=== PATIENT | female | born 1995 | race Two or more races ===

== ENCOUNTER 2024-05-31 08:15 | Outpatient (CLI) | payer MEDICAID, SELFPAY ==
[2024-05-31 08:33] VITALS: BP 134/91; PULSE 93
[2024-05-31 08:46] VITALS: BP 134/91; PULSE 107; RESP 18; RESP 98; TEMP 36.7; BMI 41.2
[2024-05-31 09:48] VITALS: BP 127/80; PULSE 78
[2024-05-31 09:52] LABS: Basophils % (Auto) 0 % (0-2.5); Eosinophils # (Auto) 0.1 Thou/mm3 (0.0-0.5); Eosinophils % (Auto) 1 % (0-10); Hematocrit 35.3 % (36.0-46.0); Immature Granulocytes % (Auto) 0 % (0-0); Immature Granulocytes Auto 0.03 Thou/mm3 (0.00-0.00); Lymphocytes # (Auto) 1.4 Thou/mm3 (1.0-4.8); Lymphocytes % (Auto) 15 % (10-50); Mean Corpuscular Hemoglobin 29.3 pg (25.0-35.0); Mean Corpuscular Volume 86 fL (80-100); Monocytes # (Auto) 0.5 Thou/mm3 (0.0-0.8); Monocytes % (Auto) 6 % (0-12); Neutrophils # (Auto) 7.3 Thou/mm3 (1.8-7.7); Neutrophils % (Auto) 78 % (37-80); Nucleated Red Blood Cell % 0 /100 WBC (0); Platelet Count 199 Thou/mm3 (140-440); RDW Standard Deviation 44.2 fL (36.4-46.3); White Blood Count 9.4 Thou/mm3 (3.6-11.0)
[2024-05-31 10:10] LABS: Fibrinogen 596 mg/dL (175-375); INR 0.9 (0.9-1.3); Partial Thromboplastin Time 27.3 Seconds (22.0-36.0); Prothrombin Time 10.3 Seconds (9.0-12.2)
[2024-05-31 10:20] LABS: Alanine Aminotransferase 29 U/L (10-49); Albumin, Serum 3.6 gm/dL (3.5-5.0); Albumin/Globulin Ratio 1.3 (1.2-2.2); Alkaline Phosphatase 121 U/L (46-116); Anion Gap 8 (7-16); Aspartate Amino Transferase 19 U/L (0-34); BUN/Creatinine Ratio 15 Ratio (12-20); Bilirubin,Total 0.4 mg/dL (0.3-1.2); Blood Urea Nitrogen 9 mg/dL (9-23); Calcium 9.1 mg/dL (8.3-10.6); Calcium (Corrected) 9.4 mg/dL (8.5-10.1); Carbon Dioxide 24.1 mMol/L (20.0-31.0); Chloride 103 mMol/L (98-107); Creatinine (Component) 0.6 mg/dL (0.6-1.3); Estimated Creatinine Clearance 188.4 mL/min (>60); Globulin 2.7 gm/dL (2.3-3.5); Glucose 82 mg/dL (74-106); Osmolality,Calculated 267 (275-295); Potassium 4.3 mMol/L (3.4-5.1); Sodium 135 mMol/L (136-145); Total Protein 6.3 gm/dL (5.7-8.2); Uric Acid 6.3 mg/dL (3.1-7.8); eGFR > 60 See Note
[2024-05-31 10:43] LABS: Collection Type, Urine Clean Catch
[2024-05-31 10:47] LABS: Bacteria,Urine Rare; Bilirubin,Urine Negative (Negative); Blood,Urine Negative (Negative); Clarity,Urine Clear (Clear/Hazy); Color,Urine Lt-Yellow (Lt Yel-Yel); Glucose, Urine Negative (Negative); Ketones,Urine Negative (Negative); Leukocyte Esterase,Urine Positive (Negative); Nitrite,Urine Negative (Negative); Protein,Urine Negative (Neg - Trace); RBC,Urine 1 /hpf (0-3); Squamous Epithelial Cell,Urine 3 /hpf (0-5); Urobilinogen,Urine Negative mg/dL (0.0-1.0); WBC,Urine 1 /hpf (0-5)
== END 2024-05-31 11:29 | disposition home or self-care (01) ==
LOC: S4S1 08:17 → S4SX 08:18
PROVIDERS: Referring Provider Specialist; Visit Provider Specialist
DX: Z34.83 Encounter for supervision of other normal pregnancy, third trimester (principal); Z3A.40 40 weeks gestation of pregnancy
CPT/HCPCS: 36415; 59025; 80053; 81001; 84550; 85025; 85384; 85610; 85730

== ENCOUNTER 2024-06-02 03:11 | Inpatient (IN) | payer MEDICAID, SELFPAY ==
[2024-06-02] VITALS (144 sets, daily range): BP systolic 123–175; BP diastolic 66–98; PULSE 72–202; RESP 17–18; TEMP 36.7–37.2; O2SAT 73–100
[2024-06-02] MEDS: RINGERS LACTATED 1000 ML 1,000 ML 100 ML IV ×2 (03:45→09:38)
[2024-06-02 04:05] LABS: Basophils # (Auto) 0.1 Thou/mm3 (0.0-0.2); Basophils % (Auto) 1 % (0-2.5); Eosinophils # (Auto) 0.2 Thou/mm3 (0.0-0.5); Eosinophils % (Auto) 2 % (0-10); Immature Granulocytes % (Auto) 0 % (0-0); Immature Granulocytes Auto 0.04 Thou/mm3 (0.00-0.00); Lymphocytes # (Auto) 2.1 Thou/mm3 (1.0-4.8); Lymphocytes % (Auto) 18 % (10-50); Mean Corpuscular HGB Conc 34.2 g/dl (31.0-37.0); Mean Corpuscular Hemoglobin 28.7 pg (25.0-35.0); Mean Corpuscular Volume 84 fL (80-100); Monocytes # (Auto) 0.7 Thou/mm3 (0.0-0.8); Monocytes % (Auto) 6 % (0-12); Neutrophils # (Auto) 8.8 Thou/mm3 (1.8-7.7); Neutrophils % (Auto) 74 % (37-80); Nucleated Red Blood Cell % 0 /100 WBC (0); Platelet Count 225 Thou/mm3 (140-440); RDW Standard Deviation 43.5 fL (36.4-46.3); Red Blood Count 4.53 Miln/mm3 (4.00-5.20); White Blood Count 11.8 Thou/mm3 (3.6-11.0)
[2024-06-02 04:31] LABS: Syphilis Nonreactive (Nonreactive)
[2024-06-02 06:48] LABS: Collection Type, Urine Clean Catch; WBC,Urine 0 /hpf (0-5)
[2024-06-02 07:22] LABS: Alanine Aminotransferase 27 U/L (10-49); Albumin, Serum 3.7 gm/dL (3.5-5.0); Albumin/Globulin Ratio 1.4 (1.2-2.2); Alkaline Phosphatase 130 U/L (46-116); Anion Gap 12 (7-16); Aspartate Amino Transferase 19 U/L (0-34); BUN/Creatinine Ratio 17 Ratio (12-20); Bilirubin,Total 0.4 mg/dL (0.3-1.2); Blood Urea Nitrogen 10 mg/dL (9-23); Calcium 9.3 mg/dL (8.3-10.6); Calcium (Corrected) 9.5 mg/dL (8.5-10.1); Carbon Dioxide 22.5 mMol/L (20.0-31.0); Chloride 103 mMol/L (98-107); Creatinine (Component) 0.6 mg/dL (0.6-1.3); Estimated Creatinine Clearance 268.3 mL/min (>60); Globulin 2.6 gm/dL (2.3-3.5); Glucose 86 mg/dL (74-106); Osmolality,Calculated 271 (275-295); Sodium 137 mMol/L (136-145); Total Protein 6.3 gm/dL (5.7-8.2); Uric Acid 6.5 mg/dL (3.1-7.8); eGFR > 60 See Note
[2024-06-02 08:01] LABS: Fibrinogen 523 mg/dL (175-375); INR 0.9 (0.9-1.3); Partial Thromboplastin Time 28.3 Seconds (22.0-36.0); Prothrombin Time 10.2 Seconds (9.0-12.2)
[2024-06-02 08:16] LABS: Bacteria,Urine 4+; Bilirubin,Urine Negative (Negative); Blood,Urine Trace (Negative); Clarity,Urine Clear (Clear/Hazy); Color,Urine Colorless (Lt Yel-Yel); Glucose, Urine Negative (Negative); Ketones,Urine Negative (Negative); Leukocyte Esterase,Urine Negative (Negative); Nitrite,Urine Negative (Negative); Protein,Urine Negative (Neg - Trace); RBC,Urine 1 /hpf (0-3); Specific Gravity,Urine 1.006 (1.001-1.035); Squamous Epithelial Cell,Urine 1 /hpf (0-5); Urobilinogen,Urine Negative mg/dL (0.0-1.0)
--- NOTE | 2024-06-02 10:22 | PD.LDHP ---
Documentation for date of: 06/02/24 OB Labor/Induct. HPI History of Present Illness Comments: RE: PURA RODRIGUEZ : 1995 DATE OF ADMISSION: 06/02/2024 HISTORY OF PRESENT ILLNESS: This is a 29-year-old 2, para 1 with a due date of 05/28/2024 with intrauterine at 40 weeks and 5 days who presents to labor and delivery. She reports occasional contractions. Denies leaking. She denies any bleeding. She reports normal movement. Her care was complicated by mild COVID-19 infection. She present for induction of labor. PAST MEDICAL HISTORY: Preeclampsia in a previous and appendicitis. PAST SURGICAL HISTORY: Appendectomy. ALLERGIES: NO KNOWN DRUG ALLERGIES. MEDICATIONS: 1. multivitamin one p.o. daily. 2. Aspirin 81 mg one p.o. daily. SOCIAL HISTORY: She denies any alcohol, drug use, or smoking. FAMILY HISTORY: Denies. OBSTETRIC HISTORY: In 2018, 40-week normal vaginal delivery 8 pounds 13 ounce male, no complications. REVIEW OF SYSTEMS: She denies any headache, change in vision, or right upper quadrant pain. She denies any chest pain, palpitations, shortness of breath, or lower extremity pain. PHYSICAL EXAMINATION: VITAL SIGNS: Blood pressure is 128/70, heart rate 88, respirations 18, temperature 98.2. HEENT: Oropharynx and sclerae are clear. LUNGS: Clear to auscultation bilaterally. HEART: Regular rate and rhythm. ABDOMEN: Gravid, term size consistent with estimated weight 8.25 pounds. PELVIC: See RN notes. EXTREMITIES: Nontender. SKIN: No gross rashes or lesion. NEUROLOGIC: No focal deficits. ASSESSMENT AND PLAN: Intrauterine at 40 weeks and 5 days, induction of labor Informed consent was obtained. The patient was made aware of the risks, complications, alternatives, and benefits of the proposed procedure and she agrees. Labs Labs: Negative: Hepatitis B, HIV, Chlamydia, Gonorrhea and Group Beta Strep Meds Home Medications and Allergies Home Medications ?Medication ?Instructions ?Recorded ?Confirmed ?Type aspirin 81 mg tablet,delayed mg 06/02/24 History release vit no.95-ferrous tab PO 06/02/24 History fumarate 28 mg-folic acid 800 mcg tablet () Allergies Allergy/AdvReac Type Severity Reaction Status Date / Time No Known Allergies Allergy Verified 06/02/24 07:45 OB Exam Physical Exam Vital signs: Temp Pulse Resp BP Pulse Ox 98.6 F 91 18 139/95 H 97 06/02/24 07:46 06/02/24 07:30 06/02/24 03:30 06/02/24 07:30 06/02/24 10:02 OB Results Labs 06/02/24 03:35 06/02/24 04:05 Labs: Short CBC 06/02/24 Range/Units 03:35 WBC 11.8 H (3.6-11.0) Thou/mm3 Hgb 13.0 (12.0-16.0) g/dL Hct 38.0 (36.0-46.0) % Plt Count 225 (140-440) Thou/mm3 BMP 06/02/24 04:05 Sodium 137 Potassium 4.0 Chloride 103 Carbon Dioxide 22.5 BUN 10 Creatinine 0.6 Glucose 86 Calcium 9.3 Liver Function 06/02/24 Range/Units 04:05 Total Bilirubin 0.4 (0.3-1.2) mg/dL AST 19 (0-34) U/L ALT 27 (10-49) U/L Alkaline Phosphatase 130 H (46-116) U/L Albumin 3.7 (3.5-5.0) gm/dL Urine 06/02/24 Range/Units 04:30 Urine Color Colorless A (Lt Yel-Yel) Urine Clarity Clear (Clear/Hazy) Urine pH 7.0 (5.0-7.0) Ur Specific [place] 1.006 (1.001-1.035) Urine Protein Negative (Neg - Trace) Urine Glucose (UA) Negative (Negative)
[2024-06-02] MEDS: OXYTOCIN in NS 30 units 30 UNIT/500 ML BAG IV (10:27)
--- NOTE | 2024-06-02 16:12 | ESDS_ITS ---
DS: Providers Provider Date of admission: 06/02/24 03:11 Primary care physician: Demario Walter MD Admitting Provider: Demario Walter MD Attending Provider on Admission: Demario Walter MD Attending Provider on DC: Demario Walter MD Discharging Provider: Demario Walter MD DS: Diagnosis Problem List Completed Was Problem List Reviewed/Reconciled?: Yes Summary/Hosp Course Time Spent with Patient Time attestation: Total time spent providing and/or coordinating discharge services: Exam Vital Signs Temp Pulse Resp BP Pulse Ox 98.6 F 116 H 18 150/68 H 73 L 06/02/24 07:46 06/02/24 16:00 06/02/24 03:30 06/02/24 16:00 06/02/24 15:53 Discharge Plan Plan Patient Disposition: HOME (Self Care) Patient condition on transfer: Stable Prescriptions/Referrals Prescriptions/Med Rec: New ibuprofen 600 mg tablet 600 mg PO Q6H PRN (Reason: pain) Qty: 30 0RF Continued PNV cmb#95-ferrous fumarate-FA [] 28 mg iron- 800 mcg tablet PO Patient Comments: TAKE 1 TABLET BY MOUTH EVERY DAY Discontinued aspirin 81 mg tablet,delayed release (DR/EC) Patient Comments: TAKE 1 TABLET BY MOUTH EVERY DAY Referrals: Demario Walter MD [Primary Care Provider] - Patient/Caregiver Discharge Instructions Discharge Activity: activity as tolerated Other Discharge Activity Instructions:: Follow up office 6 weeks Print Language: [place] Stand Alone Forms: [employer] Award Info., Patient Portal Info Letter Discharge Order Discharge Orders: Discharge (Routine); Ordered 06/03/24 Ordered By: Demario Walter Planned Discharge Date 06/03/24
[2024-06-02 22:27] LABS: Basophils % (Auto) 0 % (0-2.5); Eosinophils % (Auto) 0 % (0-10); Hematocrit 32.1 % (36.0-46.0); Immature Granulocytes % (Auto) 0 % (0-0); Immature Granulocytes Auto 0.04 Thou/mm3 (0.00-0.00); Lymphocytes # (Auto) 1.6 Thou/mm3 (1.0-4.8); Lymphocytes % (Auto) 12 % (10-50); Mean Corpuscular HGB Conc 34.3 g/dl (31.0-37.0); Mean Corpuscular Volume 85 fL (80-100); Monocytes # (Auto) 0.7 Thou/mm3 (0.0-0.8); Monocytes % (Auto) 5 % (0-12); Neutrophils # (Auto) 10.9 Thou/mm3 (1.8-7.7); Neutrophils % (Auto) 82 % (37-80); Nucleated Red Blood Cell % 0 /100 WBC (0); Platelet Count 187 Thou/mm3 (140-440); RDW Standard Deviation 44.2 fL (36.4-46.3); Red Blood Count 3.79 Miln/mm3 (4.00-5.20); White Blood Count 13.3 Thou/mm3 (3.6-11.0)
[2024-06-03 00:10] VITALS: BP 128/77; PULSE 78; RESP 18; TEMP 36.6; O2SAT 97
[2024-06-03 04:00] VITALS: BP 124/78; PULSE 81; RESP 18; TEMP 36.5; O2SAT 97
[2024-06-03 08:55] VITALS: BP 115/72; PULSE 98; RESP 16; TEMP 36.9; O2SAT 97
--- NOTE | 2024-06-03 09:57 | ESPR_ITS ---
RE: PURA RODRIGUEZ : 1995 DATE OF SERVICE: 06/03/2024 S: day #1, the patient denies any problem or complaints. She is voiding. She is ambulating. She tolerating regular diet. She is passing flatus. She denies any excessive vaginal bleeding. She denies any dizziness or lightheadedness. She denies any chest pain, palpitations, shortness of breath or lower extremity pain. O: Vital Signs: Blood pressure 124/78, heart rate 81, respirations 18, temperature 97.7, pulse oximetry is 97% on room air. Lungs: Clear to auscultation bilaterally. Heart: Regular rate and rhythm. Abdomen: Fundus is firm. Extremities: Nontender. Skin: No gross rashes or lesions. LABORATORY DATA: Hemoglobin pre-delivery is 13.0, post-delivery is 11.0. ASSESSMENT: day #1, status post spontaneous vaginal delivery. P: Discharge home. Discharge instructions given. Follow up in the office in 6 weeks. DT: 08:47:18 TT: 09:55:00 Ref: [id number] - TID: [id number]
[2024-06-03 11:47] VITALS: BP 126/80; PULSE 100; RESP 17; TEMP 36.8; O2SAT 98
[2024-06-03 15:54] VITALS: BP 134/85; PULSE 91; RESP 16; TEMP 36.5
--- NOTE | 2024-06-07 11:27 | PD.LDDELS ---
Data (Young) Data Hx Section: No : 2 Para: 1 Term: 1 : 0 : 0 Delivery Data (Young) Labor Data ROM Date: 06/02/24 ROM Time: 14:12 Rupture Type: SROM Amniotic Fluid: Meconium Stained Delivery Data EDC: 05/28/24 EDC calculated by:: LMP/early US confirmation Labor Onset Stage 1 Date: 06/02/24 Labor Onset Stage 1 Time: 00:01 Labor Onset Stage 2 Date: 06/02/24 Labor Onset Stage 2 Time: 15:10 Delivery Date: 06/02/24 Delivery Time: 15:54 Gestational age (weeks): 40 Gestational age (days): 5 Placenta Delivery Date: 06/02/24 Placenta Delivery Time: 15:59 Delivered by: Demario Walter Delivery nurse: Dionna Delgado Other staff at delivery: Nurse Other staff at delivery: Nursery Nurse Other staff at delivery: Tamra Cody Other staff at delivery: Staci Trivedi Delivery Method Delivery: Vaginal Delivery Type: Spontaneous Presentation: Vertex Position: OA Anesthesia Type Primary Anesthesia: Epidural Placenta Placenta Delivery: Spontaneous EBL Estimated blood loss (ml): 200 Umbilical Cord Nuchal Cord: x1 Additional Procedures None Complications Complications: None Data ([place]) [place] Data Gender: Female Weight Grams: 3600 1 Minute Total: 8 5 Minute Total: 9
== END 2024-06-03 16:15 | disposition home or self-care (01) | DRG 560 ==
LOC: S4SX 16:13 → S4NX 18:54
PROVIDERS: Admitting Provider Specialist; PCP Specialist; Visit Provider Specialist
DX: O48.0 Post-term pregnancy (principal); Z3A.40 40 weeks gestation of pregnancy; Z37.0 Single live birth; O77.0 Labor and delivery complicated by meconium in amniotic fluid; O69.81X0 Labor and delivery complicated by cord around neck, without compression, not applicable or unspecified; Z86.16 Personal history of COVID-19; Z79.82 Long term (current) use of aspirin
CPT/HCPCS: 36415; 59409; 80053; 81001; 84550; 85025; 85384; 85610; 85730; 86780; 86850; 86900; 86901; 94762; J2590; J2795; J3010; J7120; A9270